=== PATIENT | male | born 2005 | race Caucasian/White ===

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

== ENCOUNTER 2025-05-09 02:37 | Day surgery (SDC) | payer OTHER, SELFPAY ==
[2025-04-28 14:05] VITALS: BMI 23.1
--- NOTE | 2025-04-28 14:12 | PC.NURSE ---
Report to the Outpatient Waiting Room, entrance under the green pavilion located off [facility], at time _1230_ on date _1910_. Planned Procedure Time: _230pm_.? Time changes happen often and if your time is changed the preop area will call you the afternoon before. - You and your visitor will be asked to self-screen and do not enter if you have any COVID symptoms. Please call surgeon if you need to reschedule. - A mask is optional within the hospital at this time. Patients may have clear liquids (water, carbonated beverages, clear teas, apple juice) until 3 hours prior to surgery with a maximum of 20 ounces. - No food from midnight until time of surgery and no smoking, or chewing tobacco (or any form of nicotine). No chewing gum, candy or mints. Take only the following medications with a SIP of water on the morning of surgery: __Nebulizer if needed. DO NOT STOP ANY OF YOUR OTHER PRESCRIPTION MEDICATIONS PRIOR TO SURGERY EXCEPT THE FOLLOWING Hold all vitamins and supplements for 3 days per anesthesiologist. Medications to discontinue per physician Date to take last dose Please no make-up, nail welsh, hairspray, perfume, deodorant, or body powder the day of surgery.? No jewelry (including any body piercings) or valuables the day of surgery, leave them at home.? Please take a shower or bath the night before, or the morning of, surgery with an antibacterial soap.? Wear comfortable, loose fitting clothing.? - Jewelry must be removed prior to entering the operating room.? Rings and piercings that are not removed may be cut off. - The hospital will not accept responsibility for valuables.? - Please leave all valuables, including medications, at home the day of surgery. If you are going home after surgery, a licensed motor coach driver must drive you home.? - NO public transportation without another adult if you receive anesthesia. - We recommend that an adult stay with you for 24 hours following discharge. - We also recommend that you do not drive, make important decision, drink alcoholic beverages, or take any drugs that were not prescribed by your health care provider for at least 24 hours after your discharge time. Follow any additional instructions given to you from your surgeon. Telephone instructions given to __Owen___and asked if any additional questions and then verbalized understanding. Patient advised to call surgeon office or pre surgery nurse liaison [phone] if any additional questions.
--- NOTE | 2025-05-07 16:08 | P.HP_ITS ---
H&P: HPI History of Present Illness Date/Time: 05/07/25 16:08 Chief Complaint: Septal deviation turbinate hypertrophy nasal obstruction Narrative: planned surgical procedure Review of Systems Review of Systems: All systems reviewed & are unremarkable except as noted in HPI and below [facility] Past Medical History Medical History (Updated 03/24/25 @ 12:53 by Kenroy Clark MD) Hx of psoriasis Asthma Seasonal allergies Family History Family History (Updated 03/24/25 @ 11:34 by Julia Gomez MA) Other Asthma Heart problem Social History Social History (Updated 03/24/25 @ 11:36 by Julia Gomez MA) Social History: Caffeine - Occasionally Smoking status: Never smoker Alcohol intake: current Drinks per week: 3 Alcohol use details: 1-4 per wk Substance use: never Substance use type: does not use Living arrangements: with family Spiritual care concerns: No Meds Home Medications and Allergies Home Medications ?Medication ?Instructions ?Recorded ?Confirmed ?Type albuterol sulfate 2.5 mg/3 mL 2.5 mg inhalation ONCE P RN 03/24/25 04/28/25 History (0.083 %) solution for nebulization shortness of breat h or wheezing cetirizine 10 mg capsule (Zyrtec) 10 mg PO DAILY PRN a llergy symptoms 03/24/25 04/28/25 History etanercept 50 mg/mL (1 mL) 50 mg subcut WEEKLY 5 04/28/25 History subcutaneous pen injector (Enbrel SureClick) mupirocin 2 % topical ointment 1 applic topical BID #2 2 grams 05/03/25 Rx (Centany) Allergies Allergy/AdvReac Type Severity Reaction Status Date / Time No Known Allergies Allergy Unverified 04/28/25 14:04 Exam Narrative: septal deviation turbinate hypertrophy Assessment and Plan Assessment and plan (1) Nasal obstruction: Code(s): J34.89 - Other specified disorders of nose and nasal sinuses Status: Acute Assessment and Plan: plan OR endoscopic assisted septoplasty and bilateral inferior turbinate reduction with outfracture. Risks were discussed bleeding infection damage to surrounding structures change in taste change in swallow change in cosmetic appearance septal perforation CSF leak brain the brain damage total blindness change in vision. Need for further procedures. Failure resolve symptoms. Damage to any structure of the clavicles by myself damage to any structure induction and remains anesthesia including vocal cord paralysis. (2) Nasal congestion: Code(s): R09.81 - Nasal congestion Status: Acute (3) Nasal septal deviation: Code(s): J34.2 - Deviated nasal septum Status: Acute (4) Hypertrophy of both inferior nasal turbinates: Code(s): J34.3 - Hypertrophy of nasal turbinates Status: Acute
[2025-05-09] VITALS (9 sets, daily range): BP systolic 111–138; BP diastolic 55–92; PULSE 65–88; RESP 10–20; TEMP 36.3; O2SAT 96–100
--- OUTSIDE RECORDS SUMMARY | 2025-05-09 02:40 | XMS_ITS | Clinical Summary ---
Author Organization [facility] Address [address] [place] [id number] Care Team Providers Care Site Physician Name Role Phone Gabriella Hernández MD Primary Care Provider Allergies Active Allergy Reactions Criticality Noted Date Comments Cat Dander Itching Low 04/19/2024 Medications betamethasone valerate (VALISONE) 0.1 % cream 8 Active clobetasol (TEMOVATE) 0.05 % external solutionIndicati ons:Dermatosis of the Scalp Apply to affected areas in scalp once a day as needed for itch/scaling/red ness. 50 mL 3 8 Active Additional Information Patient not taking.Reported on 02/27/2022 fluocinolone (DERMA-SMOOTH/FS ) 0.01 % oil Apply to affected areas in scalp once a day as needed for itch/scaling/red ness. 118.28 mL 3 8 Active Additional Information Patient not taking.Reported on 01/08/2023 triamcinolone (KENALOG) 0.1 % ointment Apply to moderately affected areas on body twice a day as needed for itch/scaling/red ness. Avoid face, armpits, groin. 454 g 2 8 Active Additional Information Patient not taking.Reported on 01/08/2023 hydrocortisone 2.5 % cream Apply to affected areas on face twice a day as needed for itch/scaling/red ness. 454 g 3 8 Active Additional Information Patient not taking.Reported on 02/27/2022 betamethasone dipropionate (DIPROLENE) 0.05 % ointment Apply to worst affected areas on body twice a day as needed for itch/scaling/red ness. Avoid face, armpits, groin. 45 g 3 8 Active Additional Information Patient not taking.Reported on 02/27/2022 folic acid (FOLVITE) 1 mg tablet Take 1 tablet daily when not taking methotrexate 30 tablet 11 8 Active Additional Information Patient not taking.Reported on 01/08/2023 meloxicam (MOBIC) 15 mg tablet Take 15 mg by mouth daily 0 Active clobetasoL (CLOBEX) 0.05 % shampooIndicatio ns:Scalp Psoriasis Wash scalp 3-4 times a week 118 mL 5 2 Active Additional Information Patient not taking.Reported on 04/19/2024 clindamycin (CLEOCIN T) 1 % external solutionIndicati ons:Acne vulgaris Apply topically 2 (two) times a day 60 mL 5 2 Active Additional Information Patient not taking.Reported on 09/28/2023 tretinoin (RETIN-A) 0.05 % creamIndications :Acne vulgaris Apply pea sized amount (thin layer) nightly to clean dry face. Start every other night and increase as tolerated 45 g 5 2 Active Additional Information Patient not taking.Reported on 04/19/2024 etanercept (EnbreL SureClick) 50 mg/mL (1 mL) pen injectorIndicati ons:Moderate to Severe Plaque Psoriasis Inject the contents of 1 pen (50mg) under the skin once a week 4 mL 6 3 Active methylPREDNISolo ne (Medrol, Santi,) 4 mg DosepackIndicati ons:Acute non-recurrent pansinusitis follow package directions 1 packet 4 Active Active Problems Problem Noted Date Diagnosed Date Psoriasis 03/03/2018 Bronchial asthma 06/17/2012 Hay fever 06/17/2012 Infectious warts 05/25/2012 Resolved Problems Problem Noted Date Diagnosed Date Resolved Date Eczema 05/25/2012 03/03/2018 Family History Medical History Relation Name Comments No Known Problems Father No Known Problems Mother Relation Name Status Comments Father Mother Social History Tobacco Use Types Packs/Day Years Used Date Smoking Tobacco: Never Smokeless Tobacco: Never Personal Safety Answer Date Recorded Getting School Help Needed Not on file 09/27 Sex and Gender Information Value Date Recorded Sex Assigned at Not on file 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 Gender Identity Not on file Sexual Orientation Not on file Obstetrics History Last Filed Vital Signs Vital Sign Reading Time Taken Comments Blood Pressure 119/71 04/19/2024 12:31 PM CDT Pulse 70 04/19/2024 12:31 PM CDT Temperature 36.4 C (97.6 F) 04/19/2024 12:31 PM CDT Respiratory Rate 18 04/19/2024 12:31 PM CDT Oxygen Saturation 97% 04/19/2024 12:31 PM CDT Inhaled Oxygen Concentration - - Weight 78 kg (172 lb) 04/19/2024 12:31 PM CDT Height 180.3 cm (5' 10.98) 04/19/2024 12:31 PM CDT Body Mass Index 24 04/19/2024 12:31 PM CDT Plan of Treatment Health Maintenance Due Date Last Done Comments Depression Screening 2003 Pneumococcal vaccine <65 (1 of 1 - PPSV23, PCV20, or PCV21) 2009 2003, 2003, 2003 Meningococcal B Vaccine (2 o f 2 - Trumenba SCDM 2-dose series) 11/01/2020 05/04/2020 Covid-19 Vaccine (3 - Pfizer risk series) 02/18/2021 01/21/2021, 12/30/2020 Regular Well Visit/Exam 18-64 2021 DTaP/Tdap/Td Vaccine (6 - Td or Tdap) 05/24/2024 05/24/2014, 04/08/2008, 2003, Additional history exists Influenza Vaccine (#1) 2025 , 07/10/2018, 07/10/2016, Additional history exists Hepatitis B Screening Completed 2003 , 2003, 2003, Additional history exists Varicella Vaccines Completed 03/27/2010, 03/28/2004 HPV Vaccines Completed 04/19/2016, 04/18/2015 Hepatitis C Screening Completed 06/05/2018 Procedures Procedure Name Priority Date/Time Associated Diagnosis Comments HEPATITIS PANEL, ACUTE Routine 06/05/2018 4:05 PM CDT Psoriasis, unspecified from Last 3 Months or Most Recently Relevant to Health Maintenance Results * Hepatitis panel, acute (06/05/2018 4:05 PM CDT) Hep A IgM Nonreactive Nonreactive [facility] Comment: Interpretive Data If test is reported as GRAYZONE, new sample should be drawn in two weeks for testing. Current interpretive data was last revised on 2016. Testing performed by: [facility], [address] [place] [address]., [id number] Hep B core IgM Nonreactive Nonreactive [facility] Comment: Interpretive Data If test is reported as GRAYZONE, new sample should be drawn for testing. Current interpretive data was last revised on 2016. Testing performed by: [facility], [address] [place] [address]., [id number] Hep C Ab Nonreactive Nonreactive [facility] Comment: Interpretive Data Positive results should be confirmed by a molecular method. If positive, a second separately collected sample should be submitted for Hepatitis C Virus (HCV) RNA Detection and Quantitation by Real-Time Reverse Steersman-PCR (RT-PCR). Current interpretive data was last revised on 2016. Testing performed by: [facility], [address] [place] [address]., [id number] HepBsAg Nonreactive Nonreactive [facility] Comment:Testing performed by : [facility], [address] [place] [address]., [id number] Blood specimen (specimen) 06/05/2018 4:05 PM CDT 06/05/2018 4:49 PM CDT Narrative [facility] - 06/06/2018 10:20 AM CDT Lisset Paez MD LAB MICROBIOLOGY - GEN ERAL ORDERABLES Edited Result - Final [place] [address] from Last 3 Months or Most Recently Relevant to Health Maintenance Insurance [facility] Member Subscriber Plan / Payer (Ef fective 2022-Present) Name:Scooby Olea Relation to Subscriber:Child Name:NELSON OLEA Date of :1984 (Home) Address: [address] [place] [address] Payer ID:[id number] (NAIC) Type:[facility] HMO/PPO Address: [place] [phone] [facility] [address] HMO/POS [facility] Care Teams Site Physician Relationship Specialty Start Date End Date Gabriella Hernández MD PCP - General Pediatrics 03/03/18
--- OUTSIDE RECORDS SUMMARY | 2025-05-09 02:40 | XMS_ITS | Clinical Summary ---
Author Organization [facility] Address [address] [place] [address] Care Team Providers Care Mentally Impaired Teacher Name Role Phone Gabriella Hernández MD Primary Care Provider Source Comments [facility],non-owned Affiliates and Associated Physician Practices is amultiple site organization consisting of ambulatory clinics and hospital sitesin [place], [place], [place] and [place]. This disclosure is being madepursuant to the Care Everywhere program and may not contain all information available regarding this patient. Last updated 18.[facility] [employer] Allergies No known active allergies Medications * Be aware that medications may not be up to date on this document. Alwaysverify current medications with the patient. etanercept (ENBREL SURECLICK) 50 MG/ML auto-injector pen Inject the contents of 1 sureclick (50mg) subcutaneously one time each week 0 Active meloxicam (MOBIC) 15 MG tablet Take 1 tablet by mouth once daily 30 tablet 2 0 Active Active Problems No known active problems Social History Tobacco Use Types Packs/Day Years Used Date Smoking Tobacco: Never Smokeless Tobacco: Never Sex and Gender Information Value Date Recorded Sex Assigned at Not on file Legal Sex Male 6:14 PM CDT Gender Identity Not on file Sexual Orientation Not on file Last Filed Vital Signs Vital Sign Reading Time Taken Comments Blood Pressure 108/58 07/18/2019 12: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 Pulse 75 07/18/2019 12: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 Temperature 36.7 C (98 F) 07/18/2019 12: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 Respiratory Rate 15 07/18/2019 12: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 Oxygen Saturation 98% 07/18/2019 12: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 Inhaled Oxygen Concentration - - Weight 68.9 kg (152 lb) 07/25/2020 3:09 PM 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 Height 180.3 cm (5' 11) 07/25/2020 3:09 PM 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 Body Mass Index 21.2 07/25/2020 3:09 PM 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 Plan of Treatment Health Maintenance Due Date Last Done Comments HIV SCREENING 2018 HPV VACCINE (1 - Male 3-dose series) 2018 MENINGOCOCCAL (Group B) VACC INE SHARED DECISION-MAKING (1 of 2 - Standard) 2019 HEPATITIS C SCREENING 03/13/2021 DTAP/TDAP/TD VACCINES (1 - Tdap) 2022 HEPATITIS B VACCINE (1 of 3 - 19+ 3-dose series) 2022 DEPRESSION SCREENING 09/01/2024 COVID-19 VACCINE (1 - 2023-2 5 season) 2025 INFLUENZA VACCINE (#1) 2025 ZOSTER VACCINE (1 of 2) 2053 HIB VACCINE Aged Out No longer eligi ble based on patient's age to complete this topic MENINGOCOCCAL GROUPS A/C/Y/W VACCINE Aged Out No longer eligible b ased on patient's age to complete this topic PNEUMOCOCCAL VACCINE Aged Out No long er eligible based on patient's age to complete this topic Insurance [employer] [facility] Address: [facility] [id number] [phone] [employer] Care Teams Mentally Impaired Teacher Relationship Specialty Start Date End Date Gabriella Hernández MD [address] [place] [address] [place] [id number] PCP - General Pediatrics 07/18/19
--- NOTE | 2025-05-09 11:18 | WPDHPUPDATE1 ---
History and Physical Update Update Date/Time: 05/09/25 11:18 History and Physical has been reviewed, including an updated exam of the patient. There are NO changes in the patient's condition. Risks, benefits, and alternatives have been discussed and questions answered. Patient agrees to proceed with procedure.
[2025-05-09] MEDS: ACETAMINOPHEN 500 MG TABLET 1000 MG PO (13:05)
--- NOTE | 2025-05-09 14:38 | P.PNAN_ITS ---
Anes - Initial Pre Proc Eval Procedure: Operation Date: 05/09/25 14:30 Proposed Procedures p Bilateral Turbinate Reduction with Outfracture - Kenroy Clark MD s Endoscopic Septoplasty - Kenroy Clark MD Date/Time: 05/09/25 14:38 Surgeon: Kenroy Clark MD Pre Op Diagnosis: Dev Nasal Septum, Hypertrophic Nasal Turbinates Patient Data Age: 20 Gender: M Height: 1.83 m Weight: 76.1 kg Last Vital Signs Temp 36.3 C L 05/09/25 12:30 Pulse 88 05/09/25 12:30 Resp 20 05/09/25 12:30 BP 124/78 05/09/25 12:30 Pulse Ox 99 05/09/25 12:30 O2 Del Method Room Air 05/09/25 12:30 Allergies Allergy/AdvReac Type Severity Reaction Status Date / Time No Known Allergies Allergy Verified 05/09/25 12:58 Home Medications ?Medication ?Instructions ?Recorded ?Confirmed ?Type albuterol sulfate 2.5 mg/3 mL 2.5 mg inhalation ONCE P RN 03/24/25 05/09/25 History (0.083 %) solution for nebulization shortness of breat h or wheezing cetirizine 10 mg capsule (Zyrtec) 10 mg PO DAILY PRN a llergy symptoms 03/24/25 05/09/25 History etanercept 50 mg/mL (1 mL) 50 mg subcut WEEKLY 5 05/09/25 History subcutaneous pen injector (Enbrel SureClick) mupirocin 2 % topical ointment 1 applic topical BID #2 2 grams 05/03/25 05/09/25 Rx (Centany) Patient hx anesthesia problems: none Family hx anesthesia problems: none Results Review: All pre-operative results and documents have been reviewed as part of the pre- operative evaluation. [facility] Past Medical History Medical History (Updated 03/24/25 @ 12:53 by Kenroy Clark MD) Hx of psoriasis Asthma Seasonal allergies Family History Family History (Updated 03/24/25 @ 11:34 by Julia Gomez MA) Other Asthma Heart problem Social History Social History (Updated 03/24/25 @ 11:36 by Julia Gomez MA) Social History: Caffeine - Occasionally Smoking status: Never smoker Alcohol intake: current Alcohol use details: 1-4 per wk Substance use: never Substance use type: does not use Anes - Eval Final PreProcedure Day of Procedure 05/09/25 14:38 Patient weight: normal Heart: regular rate and rhythm Lungs: clear to auscultation Airway: Mallampati scale class II Neurological: alert and oriented Last oral intake: >/= 8 hours ASA classification: II Emergent: no Anesthetic plan: proceed Anesthesia type and monitoring: general ETT and standard monitoring Results Review: All pre-operative results and documents have been reviewed as part of the pre- operative evaluation. Informed Consent: The patient's anesthetic plan and its attendant risks and benefits were discussed with the patient/family/POA. Questions were solicited and answers provided to the satisfaction of the patient/family/POA.
[2025-05-09] MEDS: ceFAZolin 2 GM in SODIUM CHLORIDE 0.9% IV 50 ML 100 ML IVPB (16:29)
[2025-05-09] MEDS: LIDO 1%/EPINEPHRINE 1:100,000 50 ML VIAL 10 ML INFILTRATE (16:31)
[2025-05-09] MEDS: OXYMETAZOLINE HCL 0.05% NAS 15 ML BTL (*BKC) 1 SPRAY NASAL (16:48)
[2025-05-09] MEDS: MUPIROCIN 2% OINT 22 GM TUBE 1 APPLIC EACH NARE (16:51)
[2025-05-09] MEDS: LACTATED RINGERS 1,000 ML 30 ML IV CONT ×2 (18:04)
--- NOTE | 2025-05-09 20:42 | W.PM.PROC2 ---
Procedure Note - Detailed Date of Procedure 05/09/25 Pre-op Diagnosis Dev Nasal Septum, Hypertrophic Nasal Turbinates Post-op Diagnosis Same Procedure Performed Endoscopic assisted septoplasty, inferior turbinate reduction bilaterally with outfracture Surgeon Kenroy Clark MD Anesthesia General Indications see above Findings severely deviated rightward septum caudally and then to the mid vault hypertrophied turbinates right greater than left. Description of Procedure Patient identified consent verified in the preoperative holding area. Patient brought back to the operating. Time-out performed. General anesthesia induced endotracheal tube to secure the patient's airway. Patient prepped draped position procedure confirmed 2nd time-out performed. Headlight utilized initially caudal septum deviation required a hemitransection incision made on left side. Total 15 cc 1% lidocaine with 1 100,000 parts epinephrine checked the bilateral nasal septum inferior turbinates. Hemitransection inches made incision made left septal flap elevated no tears I elected to keep the strut intact rather than raising a right septal flap anteriorly I created using a 15 blade I created a incision in the cartilage used a caudal to elevated and raised a right nasal septal flap. No tears. The cartilage was then removed with combination of Calos Botello forceps Cade forceps and osteotome. Bleeding was controlled with the application of Afrin-soaked pledgets and irrigation. The caudal strut was still slightly deviated so had to agreed a split in relocated on the other side with the maxillary crest with a suture. This was done with a 4-0 Vicryl. The caudal deflection was much improved however there was still 1 portion more superiorly I created a wedge of cartilage without removing the tissue to allow it to bend this was sutured in place as I closed the hemitransection incision and further stabilized by the Acevedo splints. The hemitransection incision was closed with 5 interrupted 5 0 fast gut sutures. Inferior turbinates were stabbed anteriorly with 50 later reduced in the submucosal plane using a microdebrider turbinate blade. They were then outfractured using a [place] elevator. The Acevedo splints were placed very anterior keeping the medial crura a affixed to the caudal strut in the caudal strut affixed to the mucosa much more to the left. This in turn cause the septum to be much more midline and proper appearing. This was done with leaving the appropriate amount of strut to ensure that no saddle nose deformity or sagged tip deformity or tip deformity occurred. Unfortunately this involved the medial crura and some of the the of the the scan the Acevedo splints were sitting on the skin which can lead to some discomfort which is discussed with the family after the procedure. This marked end the procedure. Care the patient back to Anesthesiology. I performed all dictated portions procedure. No complication. Total blood loss about 15 cc. Patient taken to PACU in good condition. Estimated Blood Loss 15 Drains No Packing No Pathology None sent Complications No immediate complications Condition Stable Disposition PACU [facility] Billing Surgery - Charge Forward: Surgery Billing
== END 2025-05-09 19:50 | disposition home or self-care (01) ==
PROVIDERS: Visit Provider Otolaryngology
PROC: (CPT 30520; principal; 2025-05-09 14:30)
PROC: (CPT 30520; 2025-05-09 14:30)
DX: J34.2 Deviated nasal septum (principal); J34.3 Hypertrophy of nasal turbinates
CPT/HCPCS: 30520; 30140; J0690; A9270; J1100; J2003; J2004; J2250; J2270; J2405; J2704; J7050; J7120